=== PATIENT | male | born 1975 | race African-American/Black ===

== ENCOUNTER 2017-07-11 06:34 | Observation (INO) | payer SELFPAY ==
[2017-07-11] VITALS (8 sets, daily range): BP systolic 130–157; BP diastolic 83–100; PULSE 50–76; RESP 16–20; TEMP 97.7–98.7; O2SAT 77–100
[~2017-07-11] VITALS: Ht 185.4 cm; Wt 97.5 kg
[~2017-07-11 06:34] MED LIST: Z.0.NO CURRENT MEDS
[2017-07-11] MEDS ORDERED: SODIUM CHLORIDE 0.9% FLUSH 10 ML FLUSH IVF PRN (07:30)
--- NOTE | 2017-07-11 07:31 | PD ---
HPI Chief Complaint: Numbness/Tingling Time Seen by Provider: 07:03 Travel History International Travel<30 days: No Contact w/Intl Traveler<30days: No Traveled to known affect area: No History of Present Illness HPI Patient presents to the emergency department complaining of numbness on the left side that began at 6:00 this morning, but has largely resolved. Patient is also reporting hypertension but unsure what his blood pressure was currently is 147/88. Sedated numbness started in the face, arm, and foot on the left side. These symptoms are new per patient, and he also reports feeling palpitations. States that he saw a doctor in his 20s for the palpitations but was unsure of the diagnosis and was told not to worry about it. He denies chest pain, fever, chills, headache, lower extremity edema, recent travel, slurred speech, but reports blurry vision upon awakening this morning which is subsequently resolved. He reports some shortness of breath yesterday morning but not currently. Believes the dyspnea was related to black mold is growing in his house. Reports that the symptoms related to the numbness lasted for approximately 15 minutes. [facility] Past Medical History Hypertension: Yes Past Surgical History Surgical History: No Previous Surgery Social History Alcohol Use: No Tobacco Use: No Substance Use: No Allergies-Medications (Allergen,Severity, Reaction): Coded Allergies: No Known Allergies (Unverified Allergy, Unknown, 07/11/17) shellfish derived (Verified Allergy, Unknown, 07/11/17) PT CLAIMS TO HAVE INJESTED SHELLFISH OVERSEAS AND GOT HIVES. Reported Meds & Prescriptions Reported Meds & Active Scripts Active No Active Prescriptions or Reported Medications Review of Systems Except as stated in HPI: all other systems reviewed are Neg Physical Exam Narrative GENERAL: No acute distress. SKIN: Focused skin assessment warm/dry. HEAD: Atraumatic. Normocephalic. EYES: Pupils equal and round. Extraocular muscles intact bilaterally. No scleral icterus. No injection or drainage. ENT: No nasal bleeding or discharge. Mucous membranes pink and moist. NECK: Trachea midline. No JVD. CARDIOVASCULAR: Regular rate and rhythm. No murmur appreciated. RESPIRATORY: No accessory muscle use. Clear to auscultation. Breath sounds equal bilaterally. GASTROINTESTINAL: Abdomen soft, non-tender, nondistended. Hepatic and splenic margins not palpable. MUSCULOSKELETAL: No obvious deformities. No clubbing. No cyanosis. No edema. NEUROLOGICAL: Awake and alert. No obvious cranial nerve deficits. Motor grossly within normal limits. Normal speech. Slight decrease in sensation LUE. 5/5 bilat UE and LE. PSYCHIATRIC: Appropriate mood and affect; insight and judgment normal. Data Data Last Documented VS Vital Signs Date Time Temp Pulse Resp B/P (MAP) Pulse Ox O2 Delivery O2 Flow Rate FiO2 07/11/17 07:31 100 Room Air 07/11/17 06:59 76 18 07/11/17 06:41 98.4 Orders Orders Electrocardiogram (07/11/17 07:20) Prothrombin Time / Inr (Pt) (07/11/17 07:20) Act Partial Throm Time (Ptt) (07/11/17 07:20) Complete Blood Count With Diff (07/11/17 07:20) Comprehensive Metabolic Panel (07/11/17 07:20) Creatine Kinase (Cpk) (07/11/17 07:20) Drug Screen, Random Urine (07/11/17 07:20) Troponin I (07/11/17 07:20) Urinalysis - C+S If Indicated (07/11/17 07:20) Ct Brain W/O Iv Contrast(Rout) (07/11/17 07:20) Chest, Single Ap (07/11/17 07:20) Ecg Monitoring (07/11/17 07:20) Iv Access Insert/Monitor (07/11/17 07:20) Oximetry (07/11/17 07:20) Sodium Chloride 0.9% Flush (Ns Flush) (07/11/17 07:30) Ckmb (Isoenzyme) Profile (07/11/17 07:20) Magnesium (Mg) (07/11/17 07:20) CKMB (07/11/17 07:20) CKMB% (07/11/17 07:20) Potassium Chloride (Kcl) (07/11/17 10:00) Labs Laboratory Tests Test 07/11/17 07:20 07/11/17 09:30 White Blood Count 7.1 TH/MM3 Red Blood Count 4.80 MIL/MM3 Hemoglobin 14.4 GM/DL Hematocrit 42.8 % Mean Corpuscular Volume 89.3 FL Mean Corpuscular Hemoglobin 30.0 PG Mean Corpuscular Hemoglobin Concent 33.6 % Red Cell Distribution Width 13.6 % Platelet Count 250 TH/MM3 Mean Platelet Volume 8.4 FL Neutrophils (%) (Auto) 57.4 % Lymphocytes (%) (Auto) 33.3 % Monocytes (%) (Auto) 6.0 % Eosinophils (%) (Auto) 2.9 % Basophils (%) (Auto) 0.4 % Neutrophils # (Auto) 4.1 TH/MM3 Lymphocytes # (Auto) 2.4 TH/MM3 Monocytes # (Auto) 0.4 TH/MM3 Eosinophils # (Auto) 0.2 TH/MM3 Basophils # (Auto) 0.0 TH/MM3 CBC Comment DIFF FINAL Differential Comment Prothrombin Time 10.3 SEC Prothromb Time International Ratio 1.0 RATIO Activated Partial Thromboplast Time 26.4 SEC Blood Urea Nitrogen 16 MG/DL Creatinine 1.20 MG/DL Random Glucose 83 MG/DL Total Protein 6.8 GM/DL Albumin 3.4 GM/DL Calcium Level 8.2 MG/DL Magnesium Level 1.8 MG/DL Alkaline Phosphatase 69 U/L Aspartate Amino Transf (AST/SGOT) 15 U/L Alanine Aminotransferase (ALT/SGPT) 16 U/L Total Bilirubin 0.8 MG/DL Sodium Level 143 MEQ/L Potassium Level 3.3 MEQ/L Chloride Level 107 MEQ/L Carbon Dioxide Level 26.9 MEQ/L Anion Gap 9 MEQ/L Estimat Glomerular Filtration Rate 81 ML/MIN Total Creatine Kinase 231 U/L Creatine Kinase MB 1.4 NG/ML Troponin I LESS THAN 0.02 NG/ML Urine Color YELLOW Urine Turbidity CLEAR Urine pH 6.0 Urine Specific [place] 1.029 Urine Protein NEG mg/dL Urine Glucose (UA) NEG mg/dL Urine Ketones NEG mg/dL Urine Occult Blood NEG Urine Nitrite NEG Urine Bilirubin NEG Urine Urobilinogen 2.0 MG/DL Urine Leukocyte Esterase NEG Urine RBC LESS THAN 1 /hpf Urine WBC 1 /hpf Urine Mucus FEW /lpf Microscopic Urinalysis Comment CATH-CULT NOT IND Urine Opiates Screen NEG Urine Barbiturates Screen NEG Urine Amphetamines Screen NEG Urine Benzodiazepines Screen NEG Urine Cocaine Screen NEG Urine Cannabinoids Screen NEG MDM Medical Decision Making Medical Screen Exam Complete: Yes Emergency Medical Condition: Yes Interpretation(s) Labs: Potassium and calcium slightly decreased, UA negative Last Impressions Head CT 07/11/17 0720 Signed Impressions: CONCLUSION: No acute intracranial findings Chest X-Ray 07/11/17 0720 Signed Impressions: CONCLUSION: Negative examination. ECG: Sinus rhythm, rate 68, first-degree AV block, PVCs, slight ST elevation in aVL Differential Diagnosis TIA, CVA,intracranial mass, ACS, intracranial hemorrhage Narrative Course Patient presents to the emergency department complaining of left side numbness that began at 6:00 this morning, but it subsequently resolved. He is afebrile, slightly hypertensive at 147/88, remaining vital signs stable. Patient was placed on a cardiac exercise physiologist, IV access was obtained, and labs sent/EKG done/x- ray and head CT ordered. 0948: Patient given 20 mEq of potassium Diagnosis Primary Impression: TIA (transient ischemic attack) Qualified Codes: G45.9 - Transient cerebral ischemic attack, unspecified Admitting Information Admitting Physician Requests: Observation Scripts No Active Prescriptions or Reported Meds Condition: Stable Demetra Wheeler MD Jul 11, 2017 07:31
[2017-07-11 07:39] LABS: AUTOMATED NEUTROPHIL # 4.1 TH/MM3 (1.8-7.7); BASOPHIL % 0.4 % (0.0-2.0); EOSINOPHIL # 0.2 TH/MM3 (0-0.4); EOSINOPHIL % 2.9 % (0.0-4.0); HEMATOCRIT 42.8 % (39.0-51.0); HEMOGLOBIN 14.4 GM/DL (13.0-17.0); LYMPH % 33.3 % (9.0-44.0); LYMPHOCYTE # 2.4 TH/MM3 (1.0-4.8); MEAN CELL VOLUME 89.3 FL (80.0-100.0); MEAN CORPUSCULAR HGB CONC 33.6 % (32.0-36.0); MEAN PLATELET VOLUME 8.4 FL (7.0-11.0); MONOCYTE # 0.4 TH/MM3 (0-0.9); NEUT % 57.4 % (16.0-70.0); PLATELET COUNT 250 TH/MM3 (150-450); RED CELL DISTRIBUTION WIDTH 13.6 % (11.6-17.2); WHITE BLOOD COUNT 7.1 TH/MM3 (4.0-11.0)
[2017-07-11 07:47] LABS: PROTHROMBIN TIME - PATIENT 10.3 SEC (9.8-11.6)
[2017-07-11 08:00] LABS: ALBUMIN 3.4 GM/DL (3.4-5.0); ALT (GPT) 16 U/L (12-78); AST (GOT) 15 U/L (15-37); BICARBONATE 26.9 MEQ/L (21.0-32.0); BLOOD UREA NITROGEN 16 MG/DL (7-18); CALCIUM 8.2 MG/DL (8.5-10.1); CHLORIDE 107 MEQ/L (98-107); GLOMERULAR FILTRATION RATE 81 ML/MIN (>89); GLUCOSE,RANDOM 83 MG/DL (74-106); MAGNESIUM 1.8 MG/DL (1.5-2.5); SODIUM (NA) 143 MEQ/L (136-145)
[2017-07-11 08:04] LABS: ALKALINE PHOSPHATASE 69 U/L (45-117); TOTAL BILIRUBIN ADULT 0.8 MG/DL (0.2-1.0); TOTAL PROTEIN 6.8 GM/DL (6.4-8.2); TROPONIN I LESS THAN 0.02 NG/ML (0.02-0.05)
--- NOTE | 2017-07-11 08:08 | RADRPT ---
EXAM DATE: 07/11/2017 8:03 AM EDT AGE/SEX: 42 years / Male INDICATIONS: CVA. Patient complains of left side body weakness. Increased blood pressure. CLINICAL DATA: This is the patient's initial encounter. Patient reports that signs and symptoms have been present for 1 day and indicates a pain score of 0/10. MEDICAL/SURGICAL HISTORY: None. None. COMPARISON: No prior [place] exams available for comparison. FINDINGS: A single AP view of the chest demonstrates the lungs to be symmetrically aerated without evidence of mass, infiltrate or effusion. The cardiomediastinal contours are unremarkable. Osseous structures a re intact. CONCLUSION: Negative examination. Electronically signed by: Jermaine Merrill MD 07/11/2017 8:06 AM EDT
--- NOTE | 2017-07-11 08:54 | EKG ---
Date Performed: 07/11/2017 Time Performed: 06:59:18 PTAGE: 42 years EKG: Sinus rhythm WITH FIRST DEGREE AV BLOCK WITH OCCASIONAL VENTRICULAR PREMATURE COMPLEXES ABNORMAL ECG NO PREVIOUS TRACING DOCTOR: Eron Soni Interpretating Date/Time 07/11/2017 08:53:07
[2017-07-11] MEDS ORDERED: POTASSIUM CHLORIDE 20 MEQ CONTROLLED RELEASE TAB PO ONE (10:00)
[2017-07-11 10:13] LABS: BILIRUBIN, URINE NEG (NEG); BLOOD, URINE NEG (NEG); GLUCOSE,URINE NEG (NEG); KETONE, URINE NEG (NEG); MUCUS URINE FEW /lpf (OCC); NITRITE,URINE NEG (NEG); URINE COLOR YELLOW (YELLW/STRAW); URINE LEUKOCYTE ESTERASE NEG (NEG)
--- NOTE | 2017-07-11 11:48 | RADRPT ---
EXAM DATE: 07/11/2017 11:21 AM EDT AGE/SEX: 42 years / Male INDICATIONS: Left side weakness and numbness in arm and face. CLINICAL DATA: This is the patient's initial encounter. Patient reports that signs and symptoms have been present for 1 day and indicates a pain score of 0/10. MEDICAL/SURGICAL HISTORY: Hypertension. None. RADIATION DOSE: 39.53 CTDI (mGy) COMPARISON: No prior [place] exams available for comparison. TECHNIQUE: CT of the head without contrast. Using automated exposure control and adjustment of the mA and/or kV according to patient size, radiation dose was kept as low as reasonably achievable to ob tain optimal diagnostic quality images. FINDINGS: Ventricles are symmetric and normal in appearance. No abnormal extra-axial fluid collections are iden tified. There is no evidence of intracranial hemorrhage or mass. There is nothing to suggest acute in farction. Extracranial structures are benign and intact. CONCLUSION: No acute intracranial findings Electronically signed by: Kendrick Garza MD 07/11/2017 11:46 AM EDT
[2017-07-11] MEDS ORDERED: GLUCAGON 1 MG/ML VIAL OTHER PRN (12:30)
[2017-07-11] MEDS ORDERED: DEXTROSE 50% IN WATER 50 ML VIAL(D50) IV PUSH PRN (12:30)
[2017-07-11] MEDS ORDERED: SODIUM CHLORIDE 0.9% FLUSH 10 ML FLUSH IV FLUSH PRN (12:30)
[2017-07-11] MEDS: ENOXAPARIN SODIUM 40 MG/0.4 ML SYRINGE SQ SCH (12:30)
--- NOTE | 2017-07-11 12:51 | HHI.HP ---
[facility] Service [facility] Primary Care Physician No Primary Care Physician Admission Diagnosis TIA Diagnoses: (1) Hypertension (2) TIA (transient ischemic attack) Chief Complaint: Numbness Travel History International Travel<30 Days: No Contact w/Intl Traveler <30 Da: No Traveled to Known Affected Are: No History of Present Illness The patient is a 42-year-old male who presented to the emergency department for evaluation of numbness of his left side that started approximately 6:00 this morning. He developed numbness in the left side of his face as well as in his left foot. Mild numbness also occurred in his left arm. This lasted 15-20 minutes. Denies chest pain. Did have some dyspnea yesterday, but none during this episode. He reports palpitations multiple times every day. No headache. He did have some blurry vision this morning, which has resolved. Review of Systems Constitutional: DENIES: Fever, Chills, Night Sweats Eyes: COMPLAINS OF: Blurred vision, DENIES: Vision loss Ears, nose, mouth, throat: DENIES: Hearing loss Respiratory: COMPLAINS OF: Shortness of breath, DENIES: Cough, Wheezing, Sputum production Cardiovascular: COMPLAINS OF: Palpitations, DENIES: Chest pain, Dyspnea on Exertion, Lower Extremity Edema Gastrointestinal: DENIES: Abdominal pain, Constipation, Diarrhea, Nausea, Vomiting Genitourinary: DENIES: Urinary frequency, Urinary incontinence, Urgency, Hematuria, Dysuria, Nocturia Musculoskeletal: DENIES: Joint pain, Muscle aches Integumentary: DENIES: Pruritus, Rash Hematologic/lymphatic: DENIES: Bruising Neurologic: DENIES: Headache, Localized weakness, Paresthesias, Speech Problems , Poor Balance Past Family Social History Past Medical History Hypertension Past Surgical History None Reported Medications None Allergies: Coded Allergies: No Known Allergies (Unverified Allergy, Unknown, 07/11/17) shellfish derived (Verified Allergy, Unknown, 07/11/17) PT CLAIMS TO HAVE INJESTED SHELLFISH OVERSEAS AND GOT HIVES. Family History Grandmother had stroke. Social History Denies alcohol, tobacco, or illicit drug use. Physical Exam Vital Signs Vital Signs Date Time Temp Pulse Resp B/P (MAP) Pulse Ox O2 Delivery O2 Flow Rate FiO2 07/11/17 07:31 100 Room Air 07/11/17 06:59 76 18 136/93 (107) 100 Room Air 07/11/17 06:41 98.4 72 16 154/91 (112) 99 Physical Exam GENERAL: Well-nourished, well-developed male in no acute distress. HEENT: Normocephalic, atraumatic. Pupils equal, round and reactive. Extraocular movements intact. No scleral icterus. No injection or drainage. Oropharynx is clear. Mucous membranes are moist. CARDIOVASCULAR: Regular rate and rhythm without murmurs, gallops, or rubs. RESPIRATORY: Clear to auscultation. No wheezes, rales, or rhonchi. Breathing is non-labored. GASTROINTESTINAL: Abdomen soft, non-tender, nondistended. EXTREMITIES: No lower extremity edema. No calf tenderness. PSYCH: Alert and oriented x 3. Laboratory Laboratory Tests Test 07/11/17 07:20 07/11/17 09:30 White Blood Count 7.1 Red Blood Count 4.80 Hemoglobin 14.4 Hematocrit 42.8 Mean Corpuscular Volume 89.3 Mean Corpuscular Hemoglobin 30.0 Mean Corpuscular Hemoglobin Concent 33.6 Red Cell Distribution Width 13.6 Platelet Count 250 Mean Platelet Volume 8.4 Neutrophils (%) (Auto) 57.4 Lymphocytes (%) (Auto) 33.3 Monocytes (%) (Auto) 6.0 Eosinophils (%) (Auto) 2.9 Basophils (%) (Auto) 0.4 Neutrophils # (Auto) 4.1 Lymphocytes # (Auto) 2.4 Monocytes # (Auto) 0.4 Eosinophils # (Auto) 0.2 Basophils # (Auto) 0.0 CBC Comment DIFF FINAL Differential Comment Prothrombin Time 10.3 Prothromb Time International Ratio 1.0 Activated Partial Thromboplast Time 26.4 Blood Urea Nitrogen 16 Creatinine 1.20 Random Glucose 83 Total Protein 6.8 Albumin 3.4 Calcium Level 8.2 Magnesium Level 1.8 Alkaline Phosphatase 69 Aspartate Amino Transf (AST/SGOT) 15 Alanine Aminotransferase (ALT/SGPT) 16 Total Bilirubin 0.8 Sodium Level 143 Potassium Level 3.3 Chloride Level 107 Carbon Dioxide Level 26.9 Anion Gap 9 Estimat Glomerular Filtration Rate 81 Total Creatine Kinase 231 Creatine Kinase MB 1.4 Troponin I LESS THAN 0.02 Urine Color YELLOW Urine Turbidity CLEAR Urine pH 6.0 Urine Specific [place] 1.029 Urine Protein NEG Urine Glucose (UA) NEG Urine Ketones NEG Urine Occult Blood NEG Urine Nitrite NEG Urine Bilirubin NEG Urine Urobilinogen 2.0 Urine Leukocyte Esterase NEG Urine RBC LESS THAN 1 Urine WBC 1 Urine Mucus FEW Microscopic Urinalysis Comment CATH-CULT NOT IND Urine Opiates Screen NEG Urine Barbiturates Screen NEG Urine Amphetamines Screen NEG Urine Benzodiazepines Screen NEG Urine Cocaine Screen NEG Urine Cannabinoids Screen NEG Result Diagram: 07/11/1771907/11/17719 Imaging Last Impressions Head CT 07/11/17719 Signed Impressions: CONCLUSION: No acute intracranial findings Chest X-Ray 07/11/17719 Signed Impressions: CONCLUSION: Negative examination. Caprini VTE Risk Assessment Caprini VTE Risk Assessment: No/Low Risk (score <= 1) Caprini Risk Assessment Model Point Value = 1 Point Value = 2 Point Value = 3 Point Value = 5 Age 41-60 Minor surgery BMI > 25 kg/m2 Swollen legs Varicose veins or History of unexplained or recurrent spontaneous Oral contraceptives or hormone replacement Sepsis (< 1 month) Serious lung disease, including pneumonia (< 1 month) Abnormal pulmonary function Acute myocardial infarction Congestive heart failure (< 1 month) History of inflammatory bowel disease Medical patient at bed rest Age 61-74 Arthroscopic surgery Major open surgery (> 45 min) Laparoscopic surgery (> 45 min) Malignancy Confined to bed (> 72 hours) Immobilizing plaster cast Central venous access Age >= 75 History of VTE Family history of VTE Factor V Leiden Prothrombin [id number] Lupus anticoagulant Anticardiolipin antibodies Elevated serum homocysteine Heparin-induced thrombocytopenia Other congenital or acquired thrombophilia Stroke (< 1 month) Elective arthroplasty Hip, pelvis, or leg fracture Acute spinal cord injury (< 1 month) Prophylaxis Regimen Total Risk Factor Score Risk Level Prophylaxis Regimen 0-1 Low Early ambulation 2 Moderate Order ONE of the following: *Sequential Compression Device (SCD) *Heparin 5000 units SQ BID 3-4 Higher Order ONE of the following medications: *Heparin 5000 units SQ TID *Enoxaparin/Lovenox 40 mg SQ daily (WT < 150 kg, CrCl > 30 mL/min) *Enoxaparin/Lovenox 30 mg SQ daily (WT < 150 kg, CrCl > 10-29 mL/min) *Enoxaparin/Lovenox 30 mg SQ BID (WT < 150 kg, CrCl > 30 mL/min) AND/OR *Sequential Compression Device (SCD) 5 or more Highest Order ONE of the following medications: *Heparin 5000 units SQ TID (Preferred with Epidurals) *Enoxaparin/Lovenox 40 mg SQ daily (WT < 150 kg, CrCl > 30 mL/min) *Enoxaparin/Lovenox 30 mg SQ daily (WT < 150 kg, CrCl > 10-29 mL/min) *Enoxaparin/Lovenox 30 mg SQ BID (WT < 150 kg, CrCl > 30 mL/min) AND *Sequential Compression Device (SCD) Assessment and Plan Assessment and Plan 1. TIA: Patient had transient numbness of his left side for about 15 minutes this morning. No symptoms at this time. Place in observation for TIA workup. CT of the head is negative. Check carotid artery ultrasound, 2D echocardiogram , brain MRI. PT/OT/ST. Check fasting lipid profile, hemoglobin A1c. Monitor on telemetry. Check serial cardiac enzymes. Initial troponin is negative. 2. Hypertension: Patient is not on antihypertensive medications. We will allow permissive hypertension at this time, but plan to add medication for better control prior to discharge. 3. DVT prophylaxis: SCDs, Jimy Taylor. Problem Qualifiers (1) TIA (transient ischemic attack): Qualified Codes: G45.9 - Transient cerebral ischemic attack, unspecified Deion Neely MD Jul 11, 2017 12:51
[2017-07-11 14:36] LABS: TROPONIN I LESS THAN 0.02 NG/ML (0.02-0.05)
--- NOTE | 2017-07-11 15:00 | RADRPT ---
EXAM DATE: 07/11/2017 2:49 PM EDT AGE/SEX: 42 years / Male INDICATIONS: . Left arm weakness/numbness. CLINICAL DATA: This is the patient's initial encounter. Patient reports that signs and symptoms have been present for 1 day and indicates a pain score of 0/10. MEDICAL/SURGICAL HISTORY: None. None. COMPARISON: No prior [place] exams available for comparison. TECHNIQUE: Multiplanar, multisequence examination of the brain was performed without contrast. FINDINGS: Cerebrum: The ventricles are normal for age. No evidence of midline shift, mass lesion, hemorrhage or acute infarction. No extraaxial fluid collections are seen. The pituitary gland and suprasellar cistern are normal in configuration. White Matter: No significant signal abnormalities are seen in the white matter. Posterior Fossa: The cerebellum and brainstem are intact. The 4th ventricle is midline. The cerebel lopontine angle is unremarkable. The cerebellar tonsils are normal in position. Diffusion Imaging: No focal areas of restricted diffusion are seen. No evidence of acute infarction . Extracranial: The visualized portions of the orbits are unremarkable. There is mild polypoid disease in the base of the left maxillary sinus. CONCLUSION: No acute intracranial findings Electronically signed by: Kendrick Garza MD 07/11/2017 2:59 PM EDT
[2017-07-11] MEDS ORDERED: GADODIAMIDE PF 287 MG/ML 20 ML VIAL (for RAD MRI) IVCONTRAST ONE (15:23)
--- NOTE | 2017-07-11 16:37 | RADRPT ---
EXAM DATE: 07/11/2017 4:24 PM EDT AGE/SEX: 42 years / Male INDICATIONS: Left sided numbness with blurred vision. CLINICAL DATA: This is the patient's initial encounter. Patient reports that signs and symptoms have been present for 1 day and indicates a pain score of 0/10. MEDICAL/SURGICAL HISTORY: Hypertension. Transient ischemic attack. Dyspnea. None. COMPARISON: No prior [place] exams available for comparison. VELOCITY PARAMETERS: ICA/CCA Ratio: Right 1.2 , Left 0.7 ICA: Right 74 cm/sec, Left 66 cm/sec CCA: Right 64 cm/sec, Left 97 cm/sec ECA: Right 67 cm/sec, Left 49 cm/sec Vertebral: Right 67 cm/sec antegrade, Left 55 cm/sec antegrade FINDINGS: Right Carotid: No significant stenosis is visualized. The waveforms are within normal limits. Left Carotid: No significant stenosis is visualized. The waveforms are within normal limits. Other: None. CONCLUSION: No evidence of flow-limiting carotid stenosis. Electronically signed by: Kendrick Garza MD 07/11/2017 4:36 PM EDT
[2017-07-11] MEDS: INSULIN ASPART SUPPLEMENTAL SCALE SQ SCH ×2 (17:02→21:00)
[2017-07-11] MEDS: SODIUM CHLORIDE 0.9% FLUSH 10 ML FLUSH IV FLUSH SCH (21:00)
[2017-07-11 22:44] LABS: TROPONIN I LESS THAN 0.02 NG/ML (0.02-0.05)
[2017-07-12 00:47] VITALS: BP 131/91; PULSE 52; RESP 16; TEMP 97.8; O2SAT 100
[2017-07-12 01:20] VITALS: PULSE 60
[2017-07-12 03:22] VITALS: BP 138/86; PULSE 62; RESP 17; TEMP 98.5; O2SAT 95
[2017-07-12 07:13] LABS: CHOLESTEROL/ HDL RATIO 2.31 RATIO; HDL CHOLESTEROL 68.6 MG/DL (40.0-60.0)
[2017-07-12 08:02] VITALS: PULSE 50
[2017-07-12] MEDS: INSULIN ASPART SUPPLEMENTAL SCALE SQ SCH ×2 (08:10→12:00)
[2017-07-12 08:32] VITALS: BP 124/80; PULSE 53; RESP 20; TEMP 96.8; O2SAT 99
[2017-07-12] MEDS ORDERED: ASPIRIN 325 MG TAB PO SCH (09:00)
[2017-07-12] MEDS: SODIUM CHLORIDE 0.9% FLUSH 10 ML FLUSH IV FLUSH SCH (09:21)
[2017-07-12 12:00] VITALS: BP 131/79; PULSE 63; RESP 20; TEMP 97.3; O2SAT 99
[2017-07-12] MEDS: ENOXAPARIN SODIUM 40 MG/0.4 ML SYRINGE SQ SCH (12:30)
--- NOTE | 2017-07-12 13:17 | PD.AMA ---
Against Medical Advice Note Diagnosis: (1) TIA (transient ischemic attack) (2) Hypertension Discharge Disposition: Against Medical Advice AMA Statement Patient Lacie Soni has decided to leave the hospital against medical advice. This patient has the capacity to refuse care and understands the risks of leaving, including permanent disability and/or , and has had an opportunity to ask questions about his condition. The patient has been informed that he may return for care at any time, and follow up has been arranged/ advised. Maria R Lara Jul 12, 2017 13:17
--- NOTE | 2017-07-12 15:45 | EKG ---
Date Performed: 07/11/2017 Time Performed: 20:07:14 PTAGE: 42 years EKG: Sinus rhythm WITH FIRST DEGREE AV BLOCK ABNORMAL ECG Since the PREVIOUS TRACING , no significant change noted PREVIOUS TRACIN07/11/2017 13.46 DOCTOR: Natalie Bain Interpretating Date/Time 07/12/2017 15:45:11
[2017-07-12 16:24] LABS: HEMOGLOBIN A1C 5.4 % (4.3-6.0)
--- NOTE | 2017-07-12 16:46 | EKG ---
Date Performed: 07/11/2017 Time Performed: 13:46:03 PTAGE: 42 years EKG: SINUS BRADYCARDIA WITH FIRST DEGREE AV BLOCK ST ELEVATION, PROBABLY EARLY REPOLARIZATION AB NORMAL ECG PREVIOUS TRACING : 07/11/2017 06.59 Since the prior tracing, the frequent PVCs have resolved, b ut the diffuse ST elevation was previously noted, making early repolarization the likely cause. DOCTOR: Natalie Bain Interpretating Date/Time 07/12/2017 16:45:24
== END 2017-07-12 13:53 | disposition home or self-care (01) ==
LOC: NEPC 06:34 → NEDH 12:21 → NEPGCP 13:45
PROVIDERS: ADMIT Family Medicine; ATTEND Family Medicine
DX: G45.9 Transient cerebral ischemic attack, unspecified (principal); I10 Essential (primary) hypertension; R06.00 Dyspnea, unspecified; R00.2 Palpitations; H53.8 Other visual disturbances; I44.0 Atrioventricular block, first degree; R94.31 Abnormal electrocardiogram [ECG] [EKG]
CPT/HCPCS: 70450; 70551; 71045; 80053; 80061; 80307; 81001; 82550; 82552; 82948; 83036; 83735; 84484; 85025; 85610; 85730; 92610; 93005; 93880; 96125; 97163; 97166; 99285; A9579; G0378; G8987; G8988; G8996; G8997; G8998; G9168; G9169; G9170